=== PATIENT | male | born 1980 | race African-American/Black ===

== ENCOUNTER 2016-11-08 14:44 | Emergency (ER) | payer OTHER ==
[2016-11-08 17:51] LABS: HEMOGLOBIN 16.5 gm/dl (14.0-17.5); RED BLOOD COUNT 5.36 M/UL (4.20-5.50); WHITE BLOOD COUNT 5.9 K/UL (4.5-11.0)
[2016-11-08 18:20] LABS: BUN/CREATININE RATIO 16 (0-10)
== END 2016-11-08 21:10 | disposition home or self-care (01) ==
LOC: ER1 14:44
PROVIDERS: Emergency Medicine
DX: K62.5 Hemorrhage of anus and rectum (principal); R10.30 Lower abdominal pain, unspecified; R11.0 Nausea
CPT/HCPCS: 36415; 80053; 81001; 82150; 82272; 83690; 85025; 96360; 99284; J7050; Q9962